=== PATIENT | male | born 1955 | race Caucasian/White ===

== ENCOUNTER 2016-11-18 19:38 | Emergency (ER) | payer BC ==
[2016-11-18 19:46] VITALS: BP 124/73
[2016-11-18] MEDS ORDERED: methylPREDNISolone 125 MG* 2 ML VIAL IM ONE (20:08)
[2016-11-18] MEDS ORDERED: Ipratropium 0.5MG/2.5ML NEB* 0.5 MG/2.5 ML NEB.SOLN INH ONE (20:08)
[2016-11-18] MEDS ORDERED: Albuterol 2.5 MG/3 ML NEB.SOL* (0.083%) INH ONE (20:08)
--- NOTE | 2016-11-18 20:08 | UC ---
Respiratory Complaint HPI - History of Current Complaint Chief Complaint: UCRespiratory Stated Complaint: COUGH Time Seen by Provider: 11/18/16 20:00 Onset/Duration: Sudden Onset - over the last 4 days, Worse Since - since yesterday, not responding to nebulizer. Timing: Constant Severity Initially: Mild Severity Currently: Moderate Character: Cough: Productive - yellow Aggravating Factors: Recumbent Position Alleviating Factors: Nothing Associated Signs And Symptoms: Positive: Dyspnea, Wheezing, Nasal Congestion, Sinus Discomfort Related History: Seasonal Allergies - Risk Factors Pulmonary Embolism Risk Factors: Negative Cardiac Risk Factors: Negative Pseudomonas Risk Factors: Negative Tuberculosis Risk Factors: Negative - Allergies/Home Medications Allergies/Adverse Reactions: Allergies Allergy/AdvReac Type Severity Reaction Status Date / Time Amoxicillin [From Augmentin] Allergy Intermediate Hives Verified 11/18/16 19:46 Clavulanic Acid Allergy Intermediate Hives Verified 11/18/16 19:46 [From Augmentin] PMH/Surg Hx/FS Hx/Imm Hx Respiratory History Of: Reports: Asthma, Bronchitis - Surgical History Surgical History: Yes Surgery Procedure, Year, and Place: hernia x 2 - Family History Known Family History: Negative: Cardiac Disease, Hypertension, Diabetes - Social History Occupation: Employed Full-time Lives: With Family Alcohol Use: None Alcohol Amount: recovering alcoholic 2007 Substance Use Type: None Smoking Status (MU): Never Smoked Tobacco When Did the Patient Quit Smoking/Using Tobacco: 37 YRS AGO Review of Systems ENT: Sore Throat, Nasal Discharge Respiratory: Shortness Of Breath, Cough Neurological: Headache All Other Systems Reviewed And Are Negative: Yes Physical Exam Triage Information Reviewed: Yes Appearance: No Pain Distress, Well-Nourished, Ill-Appearing Vital Signs: Initial Vital Signs Temp 98.5 F 11/18/16 19:41 Pulse 79 11/18/16 19:41 Resp 18 11/18/16 19:41 BP 124/73 11/18/16 19:41 Pulse Ox 99 11/18/16 19:41 Vital Signs Reviewed: Yes Eyes: Positive: Conjunctiva Inflamed ENT: Positive: Pharyngeal erythema, Nasal congestion, TMs normal Neck exam: Normal Respiratory: Positive: Wheezing - diffuse moderate expiratory wheezes. Cardiovascular Exam: Normal Musculoskeletal Exam: Normal Neurological Exam: Normal Psychological Exam: Normal Skin Exam: Normal UC Diagnostic Evaluation - Laboratory O2 Sat by Pulse Oximetry: 99 Re-Evaluation - Re-Evaluation First Eval Re-Evaluation Time: 20:48 Change: Improved - lungs clear without wheezing Respiratory Course/Dx - Differential Dx/Diagnosis Differential Diagnosis/HQI/PQRI: Asthma, Lower Resp Infection, Sinusitis Provider Diagnoses: Acute URI. Asthma with acute exacerbation. Allergic rhinitis Discharge - Discharge Plan Condition: Stable Disposition: HOME Prescriptions: Albuterol 2.5MG/3ML (0.083%)* [Ventolin 2.5 MG/3 ML NEB.LAKESHA*] 2.5 mg INH Q4H # 75 ml Ipratropium 0.5MG/2.5ML NEB* [Atrovent 0.5 MG NEB.LAKESHA*] 0.5 mg INH Q6H PRN #25 neb.soln PRN Reason: Sob/Wheezing predniSONE TAB* [Deltasone TAB*] 20 mg PO DAILY #18 tab Patient Education Materials: Upper Respiratory Infection (ED), Wheezing (ED), Ipratropium (By breathing), Prednisone (By mouth), Albuterol (By breathing) Additional Instructions: [employer] SINUS RINSE: CHECK OUT AT [employer] Saline nasal wash helps with mucous, allergies and congestion. It can be used up to twice a day or only as needed. Use lukewarm tap water. It does not have to be sterilized or distilled water. Do 1/3 on each side and snort out of both nostrils. Repeat the process with 1/6 of the bottle on each side with snorting in between to finish the solution in the bottle
== END 2016-11-18 21:10 | disposition home or self-care (01) ==
LOC: UCCORT 19:38
DX: J06.9 Acute upper respiratory infection, unspecified (principal); J45.901 Unspecified asthma with (acute) exacerbation; Z88.1 Allergy status to other antibiotic agents; Z87.891 Personal history of nicotine dependence
CPT/HCPCS: 96372; 99212; G0463; J2930; J7644

== ENCOUNTER 2017-06-11 19:55 | Emergency (ER) | payer BC ==
[2017-06-11 20:07] VITALS: BP 145/69
--- NOTE | 2017-06-11 20:27 | UC ---
Respiratory Complaint HPI - HPI Summary HPI Summary: COUGH X 2 WEEKS + CHEST CONGESTION / TIGHTNESS, NO FEVER, NO CHILLS, COUGH IS PRODUCTIVE WITH YELLOW SPUTUM + FATIGUE , SOB - History of Current Complaint Chief Complaint: UCRespiratory Stated Complaint: COUGH/CONGESTION Time Seen by Provider: 06/11/17 20:13 Hx Obtained From: Patient Onset/Duration: Gradual Onset, Lasting Weeks - 2, Still Present Severity Initially: Moderate Severity Currently: Moderate Character: Cough: Productive - YELLOW Aggravating Factors: Exertion, Deep Breaths Alleviating Factors: Nothing Associated Signs And Symptoms: Positive: Dyspnea, Pleuritic Chest Pain, URI, Nasal Congestion. Negative: Fever, Chills, Wheezing, Hemoptysis, Dizziness, Calf Pain, Calf Swelling - Allergies/Home Medications Allergies/Adverse Reactions: Allergies Allergy/AdvReac Type Severity Reaction Status Date / Time Amoxicillin [From Augmentin] Allergy Intermediate Hives Verified 11/18/16 19:46 Clavulanic Acid Allergy Intermediate Hives Verified 11/18/16 19:46 [From Augmentin] Home Medications: Home Medications Albuterol HFA INHALER* [Ventolin HFA Inhaler*] 2 puff INH Q4H PRN 06/11/17 [ History Confirmed 06/11/17] Azelastine 0.15% NASAL(NF) [Astepro 0.15% NASAL (NF)] 1 spray NASAL BID [History Confirmed 06/11/17] Fluticasone NASAL SPRAY 50MCG* [Flonase NASAL SPRAY 50MCG*] 2 spray BOTH NARES DAILY 06/11/17 [History Confirmed 06/11/17] LevoCETirizine TAB (NF) [Xyzal TAB (NF)] 5 mg PO DAILY 06/11/17 [History Confirmed 06/11/17] Mometasone/Formoter 200/5 MDI* [Dulera 200/5 MDI*] 2 puff INH BID 06/11/17 [ History Confirmed 06/11/17] PMH/Surg Hx/FS Hx/Imm Hx Psychological History: Anxiety, Depression - Surgical History Surgical History: Yes Surgery Procedure, Year, and Place: hernia x 2 - Family History Known Family History: Negative: Cardiac Disease, Hypertension, Diabetes - Social History Alcohol Use: None Alcohol Amount: recovering 2007 Substance Use Type: None Smoking Status (MU): Never Smoked Tobacco When Did the Patient Quit Smoking/Using Tobacco: 37 YRS AGO Review of Systems Constitutional: Negative Skin: Negative Eyes: Negative ENT: Sinus Congestion Respiratory: Shortness Of Breath, Cough Cardiovascular: Negative Gastrointestinal: Negative Is Patient Immunocompromised?: No All Other Systems Reviewed And Are Negative: Yes Physical Exam Triage Information Reviewed: Yes Appearance: Well-Appearing, No Pain Distress, Well-Nourished Vital Signs: Initial Vital Signs Temp 98.1 F 06/11/17 20:04 Pulse 77 06/11/17 20:04 Resp 16 06/11/17 20:04 BP 145/69 06/11/17 20:04 Pulse Ox 97 06/11/17 20:04 Vital Signs Reviewed: Yes Eyes: Positive: Conjunctiva Clear ENT: Positive: Normal ENT inspection, Hearing grossly normal, Pharynx normal Neck: Positive: Supple, Nontender, No Lymphadenopathy Respiratory: Positive: Chest non-tender, Lungs clear, Normal breath sounds, No respiratory distress, No accessory muscle use Cardiovascular: Positive: RRR, No Murmur, Pulses Normal Skin Exam: Normal UC Diagnostic Evaluation - Laboratory O2 Sat by Pulse Oximetry: 97 Respiratory Course/Dx - Differential Dx/Diagnosis Provider Diagnoses: pneumonia Discharge - Discharge Plan Condition: Stable Disposition: HOME Prescriptions: Benzonatate [TESSALON 200 MG CAP] 200 mg PO Q8H #21 cap DOXYcycline CAP(*) [DOXYcycline 100MG CAP(*)] 100 mg PO BID #20 cap Patient Education Materials: Pneumonia (ED) Referrals: YOUSUF Palm [Medical Doctor] - 7 Days
--- NOTE | 2017-06-11 21:01 | RAD ---
INDICATION: Cough COMPARISON: February 22, 2010 TECHNIQUE: PA and lateral dual-energy views were obtained. FINDINGS: Bones/Soft Tissues: There are no acute bony findings. Cardiomediastinal: The cardiomediastinal silhouette is normal. Lungs: There is a small right lower lobe infiltrate. Pleura: There are no pleural effusions. Other: None IMPRESSION: SMALL RIGHT LOWER LOBE INFILTRATE
[2017-06-11] MEDS ORDERED: DOXYcycline CAP(*) 100 MG PO ONE (21:06)
== END 2017-06-11 21:15 | disposition home or self-care (01) ==
LOC: UCCORT 19:55
DX: J18.9 Pneumonia, unspecified organism (principal); Z88.1 Allergy status to other antibiotic agents; F41.9 Anxiety disorder, unspecified; F32.9 Major depressive disorder, single episode, unspecified
CPT/HCPCS: 71020; 99212; A9270-GY; G0463

== ENCOUNTER 2018-08-21 09:24 | Emergency (ER) | payer BC ==
[2018-08-21 10:09] VITALS: BP 112/76
--- NOTE | 2018-08-21 11:37 | UC ---
Respiratory Complaint HPI - HPI Summary HPI Summary: Pt c/o nasal congestion, cough, sinus pressure and pain x 2 weeks. - History of Current Complaint Chief Complaint: UCRespiratory Stated Complaint: COUGH,CAVAZOS,BODY ACHES Time Seen by Provider: 08/21/18 11:27 Hx Obtained From: Patient Onset/Duration: Gradual Onset, Lasting Weeks, Still Present, Worse Since - onset Timing: Constant Severity Initially: Mild Severity Currently: Moderate Pain Intensity: 0 Character: Cough: Productive Aggravating Factors: Deep Breaths, Recumbent Position Alleviating Factors: Nothing Associated Signs And Symptoms: Positive: Wheezing, URI, Nasal Congestion, Sinus Discomfort - Risk Factors Pulmonary Embolism Risk Factors: Negative Cardiac Risk Factors: Negative Pseudomonas Risk Factors: Chronic Lung Disease Tuberculosis Risk Factors: Negative - Allergies/Home Medications Allergies/Adverse Reactions: Allergies Allergy/AdvReac Type Severity Reaction Status Date / Time amoxicillin [From Augmentin] Allergy Hives Verified 08/21/18 10:07 clavulanic acid Allergy Hives Verified 08/21/18 10:07 [From Augmentin] PMH/Surg Hx/FS Hx/Imm Hx Previously Healthy: Yes Respiratory History: COPD, Asthma - Surgical History Surgical History: Yes Surgery Procedure, Year, and Place: hernia x 2 - Family History Known Family History: Negative: Cardiac Disease, Hypertension, Diabetes - Social History Occupation: Employed Full-time Lives: With Family Alcohol Use: None Alcohol Amount: recovering alcoholic 2007 Substance Use Type: None Smoking Status (MU): Never Smoked Tobacco Have You Smoked in the Last Year: No When Did the Patient Quit Smoking/Using Tobacco: 37 YRS AGO Review of Systems All Other Systems Reviewed And Are Negative: Yes Constitutional: Positive: Fever - subjective, Chills, Fatigue Skin: Positive: Negative Eyes: Positive: Negative ENT: Positive: Nasal Discharge, Sinus Congestion, Sinus Pain/Tenderness Respiratory: Positive: Cough Cardiovascular: Positive: Negative Gastrointestinal: Positive: Negative Genitourinary: Positive: Negative Motor: Positive: Negative Neurovascular: Positive: Negative Musculoskeletal: Positive: Myalgia Neurological: Positive: Headache Psychological: Positive: Negative Is Patient Immunocompromised?: No Physical Exam Triage Information Reviewed: Yes Appearance: Ill-Appearing Vital Signs: Initial Vital Signs Temp 99.7 F 08/21/18 10:06 Pulse 89 08/21/18 10:06 Resp 18 08/21/18 10:06 BP 112/76 08/21/18 10:06 Pulse Ox 97 08/21/18 10:06 Vital Signs Reviewed: Yes ENT: Positive: Nasal congestion, Sinus tenderness Dental Exam: Normal Neck exam: Normal Respiratory: Positive: Decreased breath sounds Cardiovascular Exam: Normal Musculoskeletal Exam: Normal Neurological Exam: Normal Psychological Exam: Normal Skin Exam: Normal UC Diagnostic Evaluation - Laboratory O2 Sat by Pulse Oximetry: 97 Respiratory Course/Dx - Differential Dx/Diagnosis Differential Diagnosis/HQI/PQRI: Bronchitis, Influenza, Sinusitis Provider Diagnosis: Sinusitis Discharge - Sign-Out/Discharge Documenting (check all that apply): Patient Departure All imaging exams completed and their final reports reviewed: No Studies - Discharge Plan Condition: Stable Disposition: HOME Prescriptions: Azithromycin TAB* [Zithromax TAB (Z-SILVIA) 250 mg #6 tabs] 2 tab PO .TODAY, THEN 1 DAILY #1 silvia Benzonatate CAP* [Tessalon 100 MG CAP*] 200 mg PO Q8H PRN #30 cap PRN Reason: Cough predniSONE TAB* [Deltasone 10 MG TAB*] 30 mg PO DAILY #12 tab Patient Education Materials: Sinusitis (ED), Acute Cough (ED) Referrals: Gamaliel Nguyen MD [Primary Care Provider] - If Needed - Billing Disposition and Condition Condition: STABLE Disposition: Home
== END 2018-08-21 11:45 | disposition home or self-care (01) ==
LOC: UCCORT 09:24
DX: J32.9 Chronic sinusitis, unspecified (principal); J44.9 Chronic obstructive pulmonary disease, unspecified; Z88.0 Allergy status to penicillin
CPT/HCPCS: 99212; G0463

== ENCOUNTER 2019-05-10 12:43 | Emergency (ER) | payer BC ==
--- OUTSIDE RECORDS SUMMARY | 2019-05-10 12:50 | XMS REPORT | Summary of Care ---
:1955 Author Organization [facility] Address [address] [facility] [place] [address] Care Team Providers Name Role Phone Gamaliel Nguyen MD Primary Care Provider Reason for Visit Reason Comments Follow Up pt presents for follow up Encounter Details Date Type Department Care Team Description 04/01/2019 Office Visit [facility] Gamaliel Nguyen MD Rotator cuff tendinitis, right (Primary Dx); Practice [address] [facility] Need for hepatitis C screening test; [address] [place] [address] Diabetes mellitus screening; [place] [address] Recurrent major depressive disorder, in full remission ([facility]) [phone] Allergies Active Allergy Reactions Severity Noted Date Comments Augmentin Hives 02/15/2017 documented as of this encounter (statuses as of 04/01/2019) Medications Medication Sig Dispensed Refills Start Date End Date Status albuterol HFA Take 2 Puffs by 0 Active (PROAIR HFA) 108 inhalation EVERY (90 Base) MCG/ACT FOUR HOURS Inhalation Aero NEEDED. Soln albuterol 2.5 mg by 0 Active (PROVENTIL, Inhalation-SVN VENTOLIN) (5 route EVERY FOUR MG/ML) 0.5% HOURS Inhalation Nebu NEEDED. Soln sertraline take 2 tablets 60 Tab 1 03/19/2019 Active (ZOLOFT) 50 MG by mouth daily Oral Tab Fluticasone Take 1 INHL by 0 Active Furoate-Vilantero inhalation l (BREO ELLIPTA DAILY. IN) Budesonide-Formot Take by 0 04/01/2019 Discontinued valorie Fumarate inhalation. (SYMBICORT IN) documented as of this encounter (statuses as of 04/01/2019) Active Problems Problem Noted Date Rotator cuff tendinitis, right 09/07/2017 Rotator cuff syndrome of right shoulder 08/28/2017 documented as of this encounter (statuses as of 04/01/2019) Immunizations Name Administration Dates Next Due Influenza (IM) Preservative Free 06/02/2017 documented as of this encounter Social History Tobacco Use Types Packs/Day Years Used Date Former Smoker Cigarettes 1 1 Quit: 02/15/1977 Smokeless Tobacco: Never Used Alcohol Use Drinks/Week oz/Week Comments No Sex Assigned at Date Recorded Not on file Job Start Date Occupation Industry Not on file Not on file Not on file Travel History Travel Start Travel End No recent travel history available. documented as of this encounter Last Filed Vital Signs Vital Sign Reading Time Taken Comments Blood Pressure 118/74 04/01/2019 10:54 AM EDT Pulse 63 04/01/2019 10:54 AM EDT Temperature - - Respiratory Rate - - Oxygen Saturation 99% 04/01/2019 10:54 AM EDT Inhaled Oxygen Concentration - - Weight 82.9 kg (182 lb 12.8 oz) 04/01/2019 10:54 AM EDT Height 177.8 cm (5' 10") 04/01/2019 10:54 AM EDT Body Mass Index 26.23 04/01/2019 10:54 AM EDT documented in this encounter Progress Notes Gamaliel Nguyen MD - 04/01/2019 10:20 AM EDT PATIENT: Sukumar Navarro : 1955 DATE OF SERVICE: 04/01/2019 CHIEF COMPLAINT: Chief Complaint Patient presents with Follow Up pt presents for follow up Subjective HISTORY OF PRESENT ILLNESS: Sukumar Navarro is a 63-y.o. male. Saw PD 1 year ago to resume zoloft. Since back on it he feels a lot better . If he misses a dose or 2 he will get irritable. On the medicine he feels good. He sees trauma director for his asthma and Breo is working better than the symbicort Not needing the albuterol He will get flu shot at work Last time I saw him he had right shoulder pain Saw Dr Duran. Went to PT and did well. He went to PT 10 weeks but not keep up the xercise. Now he has pain in shoulder area again . Radiates to triceps and into neck Not weak or numb . Past Medical History: Diagnosis Date Asthma mild intermittent Colon polyp 2015 5 year Depression GERD (gastroesophageal reflux disease) Seasonal allergies spring and fall Family History Problem Relation Age of Onset Allergies Mother Arthritis Mother Psychiatry Sister bipolar Heart Sister ? Current Outpatient Medications Medication Sig albuterol (PROVENTIL, VENTOLIN) (5 MG/ML) 0.5% Inhalation Nebu Soln 2.5 mg by Inhalation-SVN route EVERY FOUR HOURS NEEDED. albuterol HFA (PROAIR HFA) 108 (90 Base) MCG/ACT Inhalation Aero Soln Take 2 Puffs by inhalation EVERY FOUR HOURS NEEDED. Fluticasone Furoate-Vilanterol (BREO ELLIPTA IN) Take 1 INHL by inhalation DAILY. sertraline (ZOLOFT) 50 MG Oral Tab take 2 tablets by mouth daily No current facility-administered medications for this visit. Allergies Allergen Reactions Augmentin Hives Social History Socioeconomic History Marital status: Spouse name: Not on file Number of children: Not on file Years of education: Not on file Highest education level: Not on file Occupational History Not on file Social Needs Financial resource strain: Not on file Food insecurity: Worry: Not on file Inability: Not on file Transportation needs: Medical: Not on file Non-medical: Not on file Tobacco Use Smoking status: Former Smoker Packs/day: 1.00 Years: 1.00 Pack years: 1.00 Types: Cigarettes Last attempt to quit: 02/15/1977 Years since quittin.1 Smokeless tobacco: Never Used Substance and Sexual Activity Alcohol use: No Drug use: No Sexual activity: Yes Partners: Female Lifestyle Physical activity: Days per week: Not on file Minutes per session: Not on file Stress: Not on file Relationships Social connections: Talks on phone: Not on file Gets together: Not on file Attends holiness service: Not on file Active member of club or organization: Not on file Attends meetings of clubs or organizations: Not on file Relationship status: Not on file Intimate partner violence: Fear of current or ex partner: Not on file Emotionally abused: Not on file Physically abused: Not on file Forced sexual activity: Not on file Other Topics Concern Not on file Social History Narrative Irlanda López Over the last 2 weeks, have you been feeling down, depressed, anxious, or hopeless?: 0 Over the past 2 weeks, have you felt little interest or pleasure in doing things ?: 0 REVIEW OF SYSTEMS: ROS Objective PHYSICAL EXAM: VITALS: BP 118/74 (BP Location: Right arm, Patient Position: Sitting) | Pulse 63 | Ht 5' 10" (1.778 m) | Wt 182 lb 12.8 oz (82.9 kg) | SpO2 99% | BMI 26.23 kg/m Body mass index is 26.23 kg/m. Physical Exam Constitutional: No distress. Neck: Neck supple. Cardiovascular: Normal rate, regular rhythm and normal heart sounds. Pulmonary/Chest: Effort normal and breath sounds normal. No respiratory distress. Musculoskeletal: He exhibits tenderness (right scapular region ). 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 ASSESSMENT / IMPRESSION: ICD-9-CM ICD-10-CM 1. Rotator cuff tendinitis, right I dont think a tear I think he needs to ge tback to the exerciseshe learned , call if not better. He not want a muscle relaxer 726.10 M75.81 2. Need for hepatitis C screening test V73.89 Z11.59 HEPATITIS C ANTIBODY WITH RELEX RNA, RT PCR 3. Diabetes mellitus screening V77.1 Z13.1 BASIC METABOLIC PANEL LIPID PROFILE 4. Recurrent major depressive disorder, in full remission (HCC), doing well on zoloft , keep on current dose 296.36 F33.42 Plan Author: Gamaliel Nguyen MD 04/01/2019 11:30 documented in this encounter Plan of Treatment Name Type Priority Associated Diagnoses Date/Time BASIC METABOLIC PANEL Lab Routine Diabetes mellitus 04/01/2019 11:51 AM EDT screening HEPATITIS C ANTIBODY Lab Routine Need for hepatitis C 04/01/2019 11:51 AM EDT WITH RELEX RNA, RT PCR screening test LIPID PROFILE Lab Routine Diabetes mellitus 04/01/2019 11:51 AM EDT screening Health Maintenance Due Date Last Done Comments HIV SCREENING 1972 HEPATITIS C SCREENING 1997 ZOSTER IMMUNIZATION SERIES (1 of 09/16/2007 2) DIABETES SCREENING 07/26/2018 07/26/2017 INFLUENZA VACCINE (#1) 2019 06/02/2017 COLONOSCOPY SCREENING 02/16/2020 02/15/2015 DEPRESSION SCREENING 04/01/2020 04/01/2019 LIPID DISORDER SCREENING 07/26/2022 07/26/2017 HPV IMMUNIZATION SERIES Aged Out No longer eligible based on patient's age to complete this topic MENINGOCOCCAL VACCINE IMM Aged Out No longer eligible based on patient's age to complete this topic PNEUMOCOCCAL 0-64 YRS Aged Out No longer eligible based on patient's age to complete this topic documented as of this encounter Results Not on filedocumented in this encounter Visit Diagnoses Diagnosis Rotator cuff tendinitis, right - Primary Need for hepatitis C screening test Special screening examination for other specified viral diseases Diabetes mellitus screening Screening for diabetes mellitus Recurrent major depressive disorder, in full remission (HCC) documented in this encounter Insurance Payer Benefit Plan / Subscriber ID Effective Dates Phone Address Type Group MARC WATSON xxxxxxxxxxxx 2017-Present [employer] documented as of this encounter
[2019-05-10 13:47] VITALS: BP 124/84
--- NOTE | 2019-05-10 14:55 | UC ---
Hand/Wrist HPI - HPI Summary HPI Summary: Patient is a 63yo male presenting with L wrist pain that occurred around 1200 this afternoon while he was applied torsion to a lug wrench. Patient states he felt a "crack" and immediate severe pain. Notes numbness and tingling. Notes decreased range of motion and strength of the hand. Notes swelling and bruising of the wrist. Rates pain 15 out of 10 and states it radiates up his forearm. - History Of Current Complaint Chief Complaint: UCUpperExtremity Stated Complaint: LEFT WRIST INJURY Hx Obtained From: Patient Onset/Duration: Sudden Onset Severity Currently: Severe Pain Intensity: 15 Pain Scale Used: 0-10 Numeric - Allergies/Home Medications Allergies/Adverse Reactions: Allergies Allergy/AdvReac Type Severity Reaction Status Date / Time amoxicillin [From Augmentin] Allergy Hives Verified 05/10/19 13:42 clavulanic acid Allergy Hives Verified 05/10/19 13:42 [From Augmentin] Home Medications: Home Medications Albuterol 2.5MG/3ML (0.083%)* [Ventolin 2.5 MG/3 ML NEB.LAKESHA*] 2.5 mg INH ONCE PRN 05/10/19 [History Confirmed 05/10/19] Albuterol inh POWDER (NF) [Proair Respiclick] 2 puff INH SEE INSTRUCTIONS PRN [History Confirmed 05/10/19] Fluticasone/Vilanterol [Breo Ellipta 200-25 Mcg INH] 1 each IH DAILY 05/10/19 [ History Confirmed 05/10/19] PMH/Surg Hx/FS Hx/Imm Hx Previously Healthy: Yes - Surgical History Surgical History: Yes Surgery Procedure, Year, and Place: hernia x 2 - Family History Known Family History: Negative: Cardiac Disease, Hypertension, Diabetes - Social History Occupation: Employed Full-time Alcohol Use: None Alcohol Amount: recovering alcoholic 2007 Substance Use Type: None Smoking Status (MU): Former Smoker Have You Smoked in the Last Year: No When Did the Patient Quit Smoking/Using Tobacco: 37 YRS AGO Review of Systems All Other Systems Reviewed And Are Negative: No Respiratory: Positive: Negative Cardiovascular: Positive: Negative Motor: Positive: Negative Musculoskeletal: Positive: Arthralgia, Decreased ROM, Edema Neurological: Positive: Weakness, Paresthesia, Numbness Physical Exam Triage Information Reviewed: Yes Appearance: Well-Appearing, Well-Nourished, Pain Distress Vital Signs: Initial Vital Signs Temp 98.3 F 05/10/19 13:42 Pulse 54 05/10/19 13:42 Resp 18 05/10/19 13:42 BP 124/84 05/10/19 13:42 Pulse Ox 99 05/10/19 13:42 Vital Signs Reviewed: Yes Eyes: Positive: Conjunctiva Clear ENT: Positive: Hearing grossly normal Neck: Positive: Supple Respiratory: Positive: No respiratory distress Cardiovascular: Positive: Pulses Normal - Strong radial pulses bilaterally, Brisk Capillary Refill Musculoskeletal: Positive: Strength Limited @ - Left Handgrip, ROM Limited @ - Left wrist flexion and extension, Edema @ - Radial aspect of the ventral L forearm, Other: - Tenderness to palpation left wrist Neurological Exam: Other - Decreased sensation over dorsal aspect of the left hand Neurological: Positive: Alert Psychological: Positive: Age Appropriate Behavior Skin: Positive: Other - Ecchymosis noted over the radial aspect of the left ventral forearm Diagnostics - Radiology L wrist Radiology Interpretation Completed By: Radiologist Summary of Radiographic Findings: IMPRESSION: #. Nondisplaced fracture at the waist of the scaphoid. Hand/Wrist Course/Dx - Course Course Of Treatment: Patient x-rays revealed a nondisplaced fracture of the left scaphoid. Patient received ibuprofen and ice here. I placed the patient in the thumb spica splint made from [employer]. I instructed the patient to keep the splint on until he is able to follow up with orthopedics which she was told to do as soon as possible. Instructed him to go to ED if he experiences severe pain, coldness and numbness of the hand, or inability to move it. Patient voiced understanding and agreed with the treatment plan. - Differential Dx/Diagnosis Provider Diagnosis: Nondisplaced fracture of scaphoid of left wrist Discharge ED - Sign-Out/Discharge Documenting (check all that apply): Patient Departure All imaging exams completed and their final reports reviewed: Yes - Discharge Plan Condition: Stable Disposition: HOME Patient Education Materials: Scaphoid Fracture (ED) Forms: *Work Release Referrals: Khanh Jones MD [Medical Doctor] - As Soon As Possible Additional Instructions: As discussed, your xrays revealed a nondisplaced fracture of your scaphoid bone. Your hand has been stabilized with a splint. It is important that you keep the splint on until you follow up with orthopedics. You may continue to take ibuprofen as directed for pain relief. It is important that you follow up with orthopedics as soon as possible for further evaluation of your fracture. Go to the Emergency Room if you experience severe pain, the hand becomes cold and numb, or you are unable to move the hand. - Billing Disposition and Condition Condition: STABLE Disposition: Home
[2019-05-10] MEDS ORDERED: Ibuprofen TAB* 600 MG PO ONE (15:01)
== END 2019-05-10 15:32 | disposition home or self-care (01) ==
LOC: UCCORT 12:43
DX: S62.025A Nondisplaced fracture of middle third of navicular [scaphoid] bone of left wrist, initial encounter for closed fracture (principal); Z87.891 Personal history of nicotine dependence; Z88.0 Allergy status to penicillin; X58.XXXA Exposure to other specified factors, initial encounter; Y93.89 Activity, other specified; Y92.9 Unspecified place or not applicable
CPT/HCPCS: 99212; A9270-GY; G0463

== ENCOUNTER → 2019-05-21 10:22 | Day surgery (SDC) | payer BC ==
[~2019-05-21 10:22] MED LIST: Buffered Lidocaine 1% SYRIN* 1 ML/SYRINGE INTRADERM ONE; Bupivacaine 0.25% SDV PF* 10 ML VIAL INJ ONE; Dexamethasone IV* 4 MG/ML 1 ML (4 MG) IV SLOW PU ONE; Dexamethasone IV* 4 MG/ML 1 ML (4 MG) ONE; DiMENhydriNATE IV* 50 MG/ML VIAL IV PUSH PRN; Famotidine IV* 10 MG/ML 2 ML (20 mg) IV ONE; Famotidine IV* 10 MG/ML 2 ML (20 mg) ONE; HYDROcodone/ACETAMIN 5-325 MG* 1 TAB PO PRN; Ketorolac INJ* 30 MG/ML 1 ML VIAL ONE; Lactated Ringers 1000 ML Bag* 1,000 ML IV SCH; Lidocaine 2% PF * 5 ML VIAL ONE; Midazolam* 1 MG/ML 5 ML VIAL (5 MG) ONE; Naloxone* 0.4 MG/ML 1 ML VIAL IV PRN; Ondansetron INJ* 2 MG/ML VIAL ONE; Propofol* 10 MG/ML 20 ML BTL ONE; ceFAZolin 2 GM in NS PREMIX(*) 2 GM/100 ML BAG IVPB ONE; fentaNYL* 50 MCG/ML 2 ML VIAL (100 MCG VIAL) IV PRN; fentaNYL* 50 MCG/ML 2 ML VIAL (100 MCG VIAL) ONE; oxyCODONE/Acetamin 5/325 MG* TAB PO PRN
--- NOTE | 2019-05-21 14:33 | OP ---
DATE OF OPERATION: 05/21/19 - [facility] DATE OF : 59 SURGEON: Diomedes Holden MD METAL SLITTER: NILTON Real ANESTHESIOLOGIST: Dr. Junior. ANESTHESIA: General. PRE-OP DIAGNOSIS: Left scaphoid waist fracture. POST-OP DIAGNOSIS: Left scaphoid waist fracture. OPERATIVE PROCEDURE: Open reduction and internal fixation of left scaphoid waist fracture. INDICATIONS: Mr. Navarro has the aforementioned scaphoid fracture with high energy fracture easily seen on x-ray. There is a lot of bruising. We talked about treatment options including multiple risk factors that he had for nonunion including the high energy nature of the injury as well as the very slight displacement and his age. We discussed all that. He wanted to proceed with screw fixation of the fracture. ESTIMATED BLOOD LOSS: 2 mL. COMPLICATIONS: None. FINDINGS: See above and below. DESCRIPTION OF PROCEDURE: Mr. Navarro was seen in the preoperative holding area. The correct site, side and procedure were identified. We came back to the operating room. The arm was prepped and draped in the usual fashion. Time- out was performed. The arm was exsanguinated and the tourniquet was inflated to 225 mmHg. I made a 2 cm incision over the dorsum of the wrist just ulnar to Tash's tubercle. Dissection was carried down. The dorsal wrist capsule was opened up. The wrist was flexed to expose the proximal pull of the scaphoid. I placed the guidewire for an Acutrak screw into the center-center position using mini C-arm fluoroscopy to guide the placement of the wire. Once I had it in the center-center position, I measured, drilled, and then placed a 24-mm standard Acutrak screw across the fracture. This provided excellent compression as seen on fluoroscopy. The position of the scaphoid was very good. At this point, everything was looking very good. The wound was irrigated out. The capsule was closed with 4-0 PDS. The skin was closed with 4 -0 Monocryl and Steri-Strips. 0.25% Marcaine was infiltrated all about the area. He was placed in a thumb spica splint with the IP joint free and then taken to the recovery room in stable condition. [id number]/[id number] #: [id number] [facility], [place]
[2019-05-21 15:38] VITALS: BP 140/86
== END | disposition home or self-care (01) ==
LOC: OR 10:22
PROVIDERS: ATTEND Orthopaedic Surgery Hand Surgery
DX: S62.002A Unspecified fracture of navicular [scaphoid] bone of left wrist, initial encounter for closed fracture (principal); J45.909 Unspecified asthma, uncomplicated; E78.5 Hyperlipidemia, unspecified; Z79.899 Other long term (current) drug therapy; Z87.891 Personal history of nicotine dependence; X58.XXXA Exposure to other specified factors, initial encounter; Y93.H9 Activity, other involving exterior property and land maintenance, building and construction; Y92.015 Private garage of single-family (private) house as the place of occurrence of the external cause
CPT/HCPCS: 76000; C1713; C1769; C1776; J0690; J1100; J1885; J2250; J2405; J2704; J3010; J3490